=== PATIENT | female | born 1985 | race Caucasian/White ===

== ENCOUNTER 2017-02-08 17:48 | Emergency (ER) | payer OTHER ==
[~2017-02-08] VITALS: Ht 157.5 cm; Wt 50.0 kg
[2017-02-08 17:57] VITALS: Ht 157.5 cm; Wt 50.0 kg
[2017-02-08] MEDS: SOD CHLORIDE 0.9% 1,000 ML IV STA ×2 (18:06→19:34)
[2017-02-08 18:42] LABS: BASOPHIL # 0.1 10^3/ul (0.0-0.1); BASOPHILS % 0.9 % (0.0-2.0); EOSINOPHILS # 0.7 10^3/ul (0.0-0.5); EOSINOPHILS % 10.2 % (0.0-7.0); HEMATOCRIT 38.2 % (37.0-47.0); HEMOGLOBIN 12.1 g/dl (12.0-16.0); LYMPHOCYTES % 29.6 % (15.0-51.0); MEAN CORPUSCULAR HEMOGLOBIN 28.9 pg (29.0-33.0); MEAN CORPUSCULAR HGB CONC 31.7 g/dl (32.0-37.0); MEAN CORPUSCULAR VOLUME 91.2 fl (82.0-101.0); MEAN PLATELET VOLUME 11.6 fl (7.4-10.4); MONOCYTE # 0.4 10^3/ul (0.3-0.9); MONOCYTES % 6.3 % (0.0-11.0); NEUTROPHILS % 52.9 % (39.0-77.0); PLATELET COUNT 154 10^3/UL (140-415); RED BLOOD COUNT 4.19 10^6/ul (4.20-5.40); RED CELL DISTRIBUTION WIDTH 13.8 % (11.5-14.5); WHITE BLOOD COUNT 6.8 10^3/ul (4.8-10.8)
[2017-02-08 19:02] LABS: ALANINE AMINOTRANSFERASE 23 IU/L (13-69); ALBUMIN 4.4 g/dl (3.3-4.9); ALBUMIN/GLOBULIN RATIO 1.33; ALKALINE PHOSPHATASE 53 IU/L (42-121); ANION GAP 15 (8-16); ASPARTATE AMINO TRANSFERASE 29 IU/L (15-46); BILIRUBIN,INDIRECT 0.3 mg/dl (0-1.1); BILIRUBIN,TOTAL 0.3 mg/dl (0.2-1.3); BLOOD UREA NITROGEN 12 mg/dl (7-20); CALCIUM 9.1 mg/dl (8.4-10.2); CARBON DIOXIDE 24 mmol/L (21-31); CHLORIDE 106 mmol/L (97-110); CREATININE 0.81 mg/dl (0.44-1.00); GLUCOSE 82 mg/dl (70-220); POTASSIUM 3.9 mmol/L (3.5-5.1); SODIUM 141 mmol/L (135-144); TOTAL PROTEIN 7.7 g/dl (6.1-8.1)
[2017-02-08 19:04] LABS: ACETAMINOPHEN < 10.0 ug/ml (10.0-30.0); SALICYLATE < 1.0 mg/dl (5.0-30.0)
[2017-02-08] MEDS ORDERED: SOD CHLORIDE 0.9% 1,000 ML IV ONE (20:00)
[2017-02-08 20:56] LABS: ADD UMIC YES; UR ASCORBIC ACID NEGATIVE (NEGATIVE); UR BILIRUBIN (Dip) NEGATIVE (NEGATIVE); UR BLOOD (Dip) 1+ mg/dL (NEGATIVE); UR CLARITY CLEAR (CLEAR); UR COLOR YELLOW (YELLOW); UR GLUCOSE (Dip) NEGATIVE (NEGATIVE); UR KETONES (Dip) NEGATIVE (NEGATIVE); UR LEUKOCYTE ESTERASE (Dip) NEGATIVE Leu/ul (NEGATIVE); UR NITRITE (Dip) NEGATIVE (NEGATIVE); UR RBC 1 /HPF (0-5); UR SPECIFIC GRAVITY (Dip) 1.009 (1.003-1.030); UR TOTAL PROTEIN (Dip) NEGATIVE (NEGATIVE); UR UROBILINOGEN (Dip) NEGATIVE (NEGATIVE)
[2017-02-08] MEDS ORDERED: ENALAPRILAT 1.25 MG INJ IV ONE (21:00)
[2017-02-08 21:16] LABS: BARBITURATES Negative (NEGATIVE); BENZODIAZEPINES Positive (NEGATIVE); CANNABINOIDS Positive (NEGATIVE); COCAINE Positive (NEGATIVE); OPIATES Negative (NEGATIVE)
[2017-02-08 23:30] VITALS: BP 87/63; PULSE 61; RESP 17; TEMP 98.1
--- NOTE | 2017-02-10 07:16 | ERD ---
ER Documentation Chief Complaint Date/Time DATE: 02/10/17 TIME: 07:10 Chief Complaint BIB RA C/O ALLEGEDLY TAKING 25 PILLS OF XANAX. UNABLE TO OBTAIN HISTORY HPI 31-year-old woman brought in by EMS for lethargy status post ingesting about 25 tablets of alprazolam just prior to arrival. She was in an argument with her boyfriend and has a psychiatric history. She has had no vomiting or diarrhea, no complaints of chest pain or shortness of breath, no seizure activity. She was transported here by EMS without further complications. ROS All systems reviewed and are negative except as per history of present illness. Medications Home Meds Unable to Obtain Active Prescriptions or Reported Meds Allergies Allergies: Coded Allergies: Unknown: Unable to obtain (Unverified , 02/08/17) PMhx/Soc Depression Medical and Surgical Hx: pt denies Medical Hx, pt denies Surgical Hx Hx Alcohol Use: Yes (DAILY) Hx Substance Use: Yes (MARIJUANNA, COCAINE) Hx Tobacco Use: No Smoking Status: Current some day smoker FmHx Family History: No diabetes Physical Exam Vitals Vital Signs Date Time Temp Pulse Resp B/P Pulse Ox O2 Delivery O2 Flow Rate FiO2 02/08/17 23:30 98.1 61 17 87/63 99 Room Air 02/08/17 22:00 69 93/55 99 Room Air 02/08/17 21:00 98.9 101 20 224/179 100 Room Air 02/08/17 19:00 Nasal Cannula 2 02/08/17 17:57 98.9 106 20 118/89 100 Physical Exam GENERAL: Well-developed, well-nourished, lethargic, afebrile HEENT: Moist mucous membranes, pink conjunctiva, no cervical spine tenderness or step-off deformities, no goiter, no jaundice or icterus, extraocular movements intact without pain. No submandibular induration, and no pharyngeal erythema NEURO: Eyes closed but arousable, pupils equal round reactive to light, no focal deficits or facial asymmetry CARDIAC: Regular rate and rhythm, no murmurs rubs or gallops LUNGS: Clear bilaterally no wheezing crackles or stridor ABDOMEN: Soft nontender, no guarding, no rigidity, no rebound, no psoas sign no obturator sign. Normoactive bowel sounds SKIN: Warm and dry to touch, no abrasions, contusions, or hematomas, no lacerations, no ecchymosis, no target lesions, and without ulcers EXTREMITIES: No clubbing cyanosis or edema, calves are bilaterally symmetrical, no Homans sign, no popliteal cord sign. Distal pulses equal and bilateral PSYCH: Normal affect without agitation or irritability Result Diagram: 02/08/17182902/08/171829 Results 24 hrs Laboratory Tests Test 02/08/17 18:30 02/08/17 20:24 White Blood Count 6.810^3/ul Red Blood Count 4.1910^6/ul Hemoglobin 12.1g/dl Hematocrit 38.2% Mean Corpuscular Volume 91.2fl Mean Corpuscular Hemoglobin 28.9pg Mean Corpuscular Hemoglobin Concent 31.7g/dl Red Cell Distribution Width 13.8% Platelet Count 80125^3/UL Mean Platelet Volume 11.6fl Neutrophils % 52.9% Lymphocytes % 29.6% Monocytes % 6.3% Eosinophils % 10.2% Basophils % 0.9% Nucleated Red Blood Cells % 0.0/100WBC Neutrophils # (Manual) 3.610^3/ul Lymphocytes # 2.010^3/ul Monocytes # 0.410^3/ul Eosinophils # 0.710^3/ul Basophils # 0.110^3/ul Nucleated Red Blood Cells # 0.010^3/ul Sodium Level 141mmol/L Potassium Level 3.9mmol/L Chloride Level 106mmol/L Carbon Dioxide Level 24mmol/L Anion Gap 15 Blood Urea Nitrogen 12mg/dl Creatinine 0.81mg/dl Glucose Level 82mg/dl Calcium Level 9.1mg/dl Total Bilirubin 0.3mg/dl Direct Bilirubin 0.00mg/dl Indirect Bilirubin 0.3mg/dl Aspartate Amino Transf (AST/SGOT) 29IU/L Alanine Aminotransferase (ALT/SGPT) 23IU/L Alkaline Phosphatase 53IU/L Total Protein 7.7g/dl Albumin 4.4g/dl Globulin 3.30g/dl Albumin/Globulin Ratio 1.33 Lipase 58U/L Serum HCG, Qualitative NEGATIVE Salicylates Level < 1.0mg/dl Acetaminophen Level < 10.0ug/ml Ethyl Alcohol Level 105.0mg/dl Urine Color YELLOW Urine Clarity CLEAR Urine pH 6.0 Urine Specific [place] 1.009 Urine Ketones NEGATIVEmg/dL Urine Nitrite NEGATIVEmg/dL Urine Bilirubin NEGATIVEmg/dL Urine Urobilinogen NEGATIVEmg/dL Urine Leukocyte Esterase NEGATIVELeu/ul Urine Microscopic RBC 1/HPF Urine Microscopic WBC 0/HPF Urine Hemoglobin 1+mg/dL Urine Glucose NEGATIVEmg/dL Urine Total Protein NEGATIVEmg/dl Urine Opiates Screen Negative Urine Barbiturates Negative Urine Amphetamines Screen Negative Urine Benzodiazepines Screen Positive Urine Cocaine Screen Positive Urine Cannabinoids Positive Current Medications Medications (Trade) Dose Ordered Sig/Kalli Route PRN Reason Start Time Stop Time Status Last Admin Dose Admin Sodium Chloride 1,000 ml @ 1,000 mls/hr Q1H STAT IV 02/08/17 18:06 02/08/17 19:05 DC 02/08/17 19:34 Sodium Chloride (NS) 1,000 ml @ 2,000 mls/hr Q30M ONCE IV 02/08/17 20:00 02/08/17 20:29 DC 02/08/17 20:28 Enalaprilat (Vasotec Iv) 1.25 mg ONCE ONCE IV 02/08/17 21:00 02/08/17 21:01 DC 02/08/17 21:02 Procedures/MDM IV line was established patient was placed on seat builder rhythm strip revealed a sinus rhythm at about 80 bpm with upright P and T waves. EKG performed, read by me: 80 bpm, normal sinus rhythm, normal axis, no acute ST segment changes, narrow QRS complex, with good R-wave progression in precordial leads. I administered 2 L normal saline intravenously and at one point she became hypotensive so she was given enalapril 1.25 mg IV 1. CBC and electrolytes are normal, liver function tests normal, troponin negative , Ethanol level was positive at 105, aspirin Tylenol levels negative, drug screen positive for cannabinoids cocaine and benzodiazepines Critical Care: Time: 40 minutes, this was time separate from other billable procedures. Treatments/Evaluations: Close monitoring and treatment of unstable vital signs, cardiorespiratory, and neurologic status, while maintaining tight balance of fluid, respiratory, and cardiac interventions. Patient will be admitted to telemetry setting for continued medical management, she is not medically cleared for psychiatric management per Departure Diagnosis: Primary Impression: Intentional drug overdose Encounter type: initial encounter Qualified Code: T50.902A - Intentional drug overdose, initial encounter Additional Impressions: Benzodiazepine overdose Encounter type: initial encounter Injury intent: intentional self-harm Qualified Code: T42.4X2A - Intentional benzodiazepine overdose, initial encounter Acute encephalopathy Cocaine abuse Condition: PHYLLIS Love MD Feb 10, 2017 07:16
== END 2017-02-09 01:11 | disposition short-term general hospital (02) ==
LOC: E/R 17:48
DX: T42.4X2A Poisoning by benzodiazepines, intentional self-harm, initial encounter (principal); G93.40 Encephalopathy, unspecified; F14.10 Cocaine abuse, uncomplicated; F17.210 Nicotine dependence, cigarettes, uncomplicated; R40.2142 Coma scale, eyes open, spontaneous, at arrival to emergency department; R40.2252 Coma scale, best verbal response, oriented, at arrival to emergency department; R40.2362 Coma scale, best motor response, obeys commands, at arrival to emergency department
CPT/HCPCS: 36415; 80053; 80306; 80307; 81001; 83690; 84703; 85025; 96374; 99291; J7030